=== PATIENT | male | born 1980 | race Caucasian/White ===

== ENCOUNTER 2020-06-06 07:22 | Outpatient (REF) | payer OTHER, SELFPAY ==
[2020-06-06 09:14] LABS: MANUAL DIFF FLAG NO
[2020-06-06 09:35] LABS: Basophils Percent Auto 0.7 % (0-2); Eosinophils Absolute Auto 0.2 X10*3/uL (0.0-0.4); Eosinophils Percent Auto 3.9 % (0-4); Hematocrit 41.8 % (42-52); Hemoglobin 14.2 g/dl (14.0-18.0); Imm Gran Abs Auto 0.01 X10*3/uL (0.00-0.03); Imm Gran Pct Auto 0.2 % (0.0-0.4); Lymphocytes Absolute Auto 1.7 X10*3/uL (1.2-4.9); Lymphocytes Percent Auto 40.4 % (20-40); Mean Corpuscular Hemoglobin 28.9 pg (27.0-33.0); Mean Corpuscular Volume 85.1 fL (80-98); Mean Platelet Volume 10.4 fL (9.4-12.4); Monocytes Absolute Auto 0.3 X10*3/uL (0.1-1.2); Monocytes Percent Auto 5.8 % (2-11); Neutrophils Absolute Auto 2.1 X10*3/uL (2.0-8.3); Platelet Count 222 X10*3/uL (160-400); Red Blood Count 4.91 X10*6/uL (4.60-5.80); Red Cell Distribution Width 11.9 % (11.0-16.0); White Blood Count 4.3 X10*3/uL (4.8-10.8)
[2020-06-06 11:14] LABS: Alanine Aminotransferase 19 U/L (0-40); Albumin Level 4.2 g/dL (3.5-5.0); Alkaline Phosphatase 67 U/L (39-117); Anion Gap 10 (12-20); Aspartate Amino Transferase 20 U/L (5-37); Bilirubin Total 0.4 mg/dL (0.0-1.0); Blood Urea Nitrogen 14 mg/dL (9-16); Calcium 8.9 mg/dL (8.4-10.2); Carbon Dioxide 30 mmol/L (22-29); Chloride 105 mmol/L (96-108); Cholesterol 195 mg/dL; Estimated Glomerular Filt Rate > 60; Glucose Fasting 101 mg/dL (60-99); HDL Cholesterol 54 mg/dL; LDL Cholesterol Calculated 126 mg/dl; Potassium 4.2 mmol/l (3.3-5.1); Sodium 141 mmol/L (135-145); Total Protein 6.6 g/dL (6.5-8.0); Triglycerides 76 mg/dL
== END 2020-06-06 07:23 | disposition home or self-care (01) ==
LOC: HO.LAB 07:22
PROVIDERS: PCP Internal Medicine; Visit Provider Internal Medicine
DX: F32.9 Major depressive disorder, single episode, unspecified (principal)
CPT/HCPCS: 36415; 80053; 80061; 85025

== ENCOUNTER 2020-08-22 09:04 | Outpatient (REF) | payer OTHER, SELFPAY | END 2020-08-22 09:05 | disposition home or self-care (01) | LOC: HO.LAB 09:04 | PROVIDERS: PCP Internal Medicine; Visit Provider Internal Medicine | DX: Z20.822 Contact with and (suspected) exposure to COVID-19 (principal) | CPT/HCPCS: 36415; C9803; U0003 ==

== ENCOUNTER 2022-11-10 07:39 | Outpatient (REF) | payer OTHER, SELFPAY ==
[2022-11-10 07:54] LABS: MANUAL DIFF FLAG NO
[2022-11-10 08:21] LABS: Basophils Percent Auto 0.8 % (0-2); Eosinophils Absolute Auto 0.1 X10*3/uL (0.0-0.4); Eosinophils Percent Auto 3.4 % (0-4); Hematocrit 43.8 % (42.0-52.0); Hemoglobin 14.7 g/dl (14.0-18.0); Imm Gran Abs Auto 0.01 X10*3/uL (0.00-0.03); Imm Gran Pct Auto 0.3 % (0.0-0.4); Lymphocytes Absolute Auto 1.5 X10*3/uL (1.2-4.9); Lymphocytes Percent Auto 39.5 % (20-40); Mean Corpuscular HGB Conc 33.6 g/dl (31.0-36.0); Mean Corpuscular Hemoglobin 28.6 pg (27.0-33.0); Mean Corpuscular Volume 85.2 fL (80.0-98.0); Mean Platelet Volume 9.8 fL (9.4-12.4); Monocytes Absolute Auto 0.3 X10*3/uL (0.1-1.2); Monocytes Percent Auto 6.5 % (2-11); Neutrophils Absolute Auto 1.9 x10*3/uL (2.0-8.3); Neutrophils Percent Auto 49.5 % (45-73); Platelet Count 200 X10*3/uL (160-400); Red Blood Count 5.14 X10*6/uL (4.60-5.80); Red Cell Distribution Width 12.2 % (11.0-16.0); White Blood Count 3.9 X10*3/uL (4.8-10.8)
[2022-11-10 08:45] LABS: Alanine Aminotransferase 22 U/L (0-40); Alkaline Phosphatase 55 U/L (39-117); Anion Gap 12 (12-20); Aspartate Amino Transferase 21 U/L (5-37); Bilirubin Total 1.3 mg/dL (0.0-1.0); Blood Urea Nitrogen 14 mg/dL (9-16); Calcium 9.1 mg/dL (8.4-10.2); Carbon Dioxide 28 mmol/L (22-29); Chloride 108 mmol/L (96-108); Cholesterol 223 mg/dL; Estimated Glomerular Filt Rate > 60; Glucose Fasting 100 mg/dL (60-99); HDL Cholesterol 67 mg/dL; LDL Cholesterol Calculated 145 mg/dl; Potassium 5.2 mmol/L (3.3-5.1); Sodium 143 mmol/L (135-145); Total Protein 6.2 g/dL (6.5-8.0); Triglycerides 55 mg/dL
== END 2022-11-10 07:40 | disposition home or self-care (01) ==
LOC: HO.LAB 07:39
PROVIDERS: PCP Internal Medicine; Visit Provider Internal Medicine
DX: E78.5 Hyperlipidemia, unspecified (principal); N28.9 Disorder of kidney and ureter, unspecified; D64.9 Anemia, unspecified
CPT/HCPCS: 36415; 80053; 80061; 85025

== ENCOUNTER 2023-06-13 13:33 | Outpatient (AMB) | payer OTHER, SELFPAY ==
[2023-06-13 13:51] VITALS: BP 126/68; PULSE 76; O2SAT 98; BMI 26.8
--- NOTE | 2023-06-13 13:51 | A.OFFPC_ITS ---
Vital Signs 06/13/23 13:51 Height 5 ft 10 in Weight 187 lb BMI 26.8 BP 126/68 Blood Pressure Location Lt brachial Position Sitting Pulse 76 Pulse Source Pulse Oximeter Pulse Oximetry (%) 98 Oxygen Delivery Method Room Air Intake Visit Reasons: L shoulder pain Allergies No Known Allergies Allergy (Verified 06/13/23 13:52) Medication List - Last Reconciled 06/13/23 by Adam Chester MD acyclovir 400 mg PO TID naproxen (Naprosyn) 500 mg PO BID PRN triamcinolone acetonide 0.5% 1 appl topical BID Tobacco use date assessed: 10/24/22 Dental Screening Dental Screen Date: 06/13/23 Did you have a dental visit in the last 12 months?: Yes Did you have a dental problem in the last 6 months where you did not have access to dental care?: No Was dental information given to patient?: Patient has dentist HPI L shoulder pain HPI Details left shoulder pain for a few months PFS Surgical History History of excision of lesion Family History Father Alcoholism Myocardial infarction Mother Myocardial infarction Social History Housing: House Alcohol intake: current Alcohol intake frequency: a few times a month Patient Tobacco Use Status: Never used Tobacco Tobacco use type: Cigarette e-Cigarette/Vaping Use: Never Used Second Hand Smoke Exposure: No service: No Current occupational status: employed Cognitive needs: No Hearing needs: No Vision needs: No Questionnaire PHQ-9 Over the last 2 weeks, how often have you been bothered by any of the following problems? 1. Little interest or pleasure in doing things: not at all 2. Feeling down, depressed, or hopeless: not at all 3. Trouble falling or staying asleep, or sleeping too much: not at all 4. Feeling tired or having little energy: not at all 5. Poor appetite or overeating: not at all 6. Feeling bad about yourself - or that you are a failure or have let yourself or your family down: not at all 7. Trouble concentrating on things, such as reading the newspaper or watching television: not at all 8. Moving or speaking so slowly that other people could have noticed. Or the opposite - being so fidgety or restless that you have been moving around a lot more than usual: not at all 9. Thoughts that you would be better off or of hurting yourself in some way: not at all Total score: 0 Depression Screening Interpretation: Negative Depression Screening Done: Yes 17591 - PHQ-9 Billing: Yes Source: Developed by Drs. Antoine Contreras, Lamont Love and colleagues, with an educational felicity from [employer]. Thrive Questionnaire Date Thrive assessed: 10/24/22 AUDIT C Alcohol Use Questionnaire (AUDIT-C) 1. How often do you have a drink containing alcohol?: Monthly or less 2. How many drinks containing alcohol do you have on a typical day when you are drinking?: 1 or 2 3. How often do you have six or more drinks on one occasion?: Never Total Score: 1 Score Reviewed/Action Taken: Yes IRAJ-7 AMB Questionnaire IRAJ-7 Date IRAJ - 7 assessed: 10/24/22 Source: Developed by Drs. Antoine Contreras, Isabel Hernandez, Lamont Staton and colleagues, with an educational felicity from [employer]. Review of Systems Const Denies chills, Denies headache(s) and Denies weight loss ENT Denies headache(s) Card Denies chest pain, Denies syncope, Denies irregular heart rhythm and Denies dyspnea Resp Denies chest congestion, Denies cough and Denies dyspnea GI Denies abdominal pain, Denies change in stool character, Denies nausea and Denies vomiting Musc Denies deformity and Denies joint swelling Neuro Denies syncope and Denies headache(s) Physical exam (Primary Care) Vital Signs: Last Vital Signs Pulse 76 06/13/23 13:51 BP 126/68 06/13/23 13:51 Pulse Ox 98 06/13/23 13:51 Oxygen Delivery Method Room Air 06/13/23 13:51 BMI result Body Mass Index 26.8 Tobacco/Smoking Status: Tobacco use Status Tobacco use date assessed 10/24/22 06/13/23 13:56 Patient Tobacco Use Status Never used Tobacco 06/13/23 13:56 Tobacco use type Cigarette 06/13/23 13:56 e-Cigarette/Vaping Use Never Used 06/13/23 13:56 PHQ-9: PHQ-9 Score PHQ-9: Total score 0 06/13/23 13:56 Depression Screening Interpretation: Negative Thrive Assessment: Date of Thrive Assessment Date Thrive assessed 10/24/22 06/13/23 13:56 Const General: cooperative, comfortable, no acute distress and alert Neck Neck: Yes no lymphadenopathy Thyroid: Thyroid normal Resp Effort & Inspection: normal respiratory effort Auscultation: clear to auscultation bilaterally Percussion: percussion normal Cardio Jugular venous distension: no JVD Palpation: normal PMI Rate: regular rate Rhythm: regular rhythm Heart sounds: S1 normal heart sound present and S2 normal heart sound present GI Inspection: Yes normal to inspection Palpation (GI): No hepatosplenomegaly present Skin General skin exam: no rashes or lesions noted Extrem General: Yes no clubbing, cyanosis or edema Assessment and Plan Assessment & Plan (1) Shoulder pain: Code(s): M25.519 - Pain in unspecified shoulder Plan: xr ice nsaids Orders: Orders XR shoulder LT min 2V Today M25.519 - Pain in unspecified shoulder PT Evaluation and Treatment Today M25.519 - Pain in unspecified shoulder Coding Level of Care Code Est Pt Level 3 (72847) Diagnoses Shoulder pain M25.519
== END 2023-06-13 14:01 | disposition home or self-care (01) ==
PROVIDERS: PCP Internal Medicine; Visit Provider Internal Medicine
DX: M25.519 Pain in unspecified shoulder (principal)
CPT/HCPCS: 99213

== ENCOUNTER 2023-06-13 14:06 | Outpatient (REF) | payer OTHER, SELFPAY ==
--- NOTE | ~2023-06-13 | XR_ITS ---
EXAMINATION: XR SHOULDER, LEFT CLINICAL INFORMATION: Patient states no injury. Pain in left shoulder. COMPARISON: None available. TECHNIQUE: AP external rotation, Grashey, scapular Y, and axillary views of the left shoulder. FINDINGS: Moderate degenerative changes in the acromioclavicular joint with joint space narrowing and hypertrophic change. Degenerative changes in the glenohumeral joint with prominent osteophyte along the inferomedial aspect of the humeral head. No abnormal soft tissue calcifications identified adjacent to the humeral head. XR/XR shoulder LT min 2V IMPRESSION: 1. Moderate degenerative changes in the acromioclavicular joint. 2. Degenerative changes in the glenohumeral joint with prominent osteophyte along the inferomedial aspect of the humeral head.
== END 2023-06-13 14:07 | disposition home or self-care (01) ==
LOC: HO.XRAY 14:06
PROVIDERS: PCP Internal Medicine; Visit Provider Internal Medicine
DX: M25.512 Pain in left shoulder (principal)
CPT/HCPCS: 73030

== ENCOUNTER 2023-07-30 09:51 | Outpatient (AMB) | payer OTHER, SELFPAY ==
--- NOTE | 2023-07-30 09:53 | MHC.OFFVIS ---
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 Patient reports ongoing discomfort for a couple months. He states that his pain is worse when laying down and getting dressed. No hx of injury or previous treatment. 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 He complains of pain primarily when lying down or with activities such as dressing himself. He reports his pain has been present for several months and points to the anterior aspect of the shoulder. He stays active with weight-lifting & exercising, and he owns a large plot of land that he has to care for, which is difficult for him. He denies any falls or known injury. He denies any prior treatment. His PCP ordered a course of PT but he did not attend. He reports that he does his own working out. His PCP also recommended icing & NSAIDs. He says he has been performing PT exercises at home, as he does not have time to attend formal PT. [facility] Surgical History History of excision of lesion Family History Father Alcoholism Myocardial infarction Mother Myocardial infarction Social History (Updated 07/30/23 @ 09:58 by Marissa Muller) Housing: House Alcohol intake: current Alcohol intake frequency: a few times a month Patient Tobacco Use Status: Never used Tobacco Tobacco use type: Cigarette e-Cigarette/Vaping Use: Never Used Second Hand Smoke Exposure: No service: No Current occupational status: employed Current occupation: student management Cognitive needs: No Hearing needs: No Vision needs: No Review of Systems Const All systems reviewed & are unremarkable except as noted in HPI and below Physical Exam Vital Signs: BMI result Body Mass Index 26.8 Const General: no acute distress, alert and awake Orientation/consciousness: patient oriented x3 HEENT Head: Yes normocephalic and Yes atraumatic Eyes EOM: EOMs intact bilaterally Resp Effort & Inspection: normal respiratory effort and able to speak in complete sentences Cardio Jugular venous distension: no JVD Skin General skin exam: turgor normal Rashes: no rashes Neuro General: patient oriented x3 Extrem Other: Left shoulder: Normal to inspection. No ecchymosis, erythema, or edema. Full shoulder ROM in all planes. Negative cross-body reach. 4/5 strength with empty can testing. NVI. Psych Appearance: grossly normal Affect: normal affect Attitude: cooperative Results Reviewed Results Reviewed: X-rays of the left shoulder from 06/13/23 were reviewed by me, Romi Limon PA-C, revealed left Glenohumeral joint & acromioclavicular joint osteoarthritis Assessment & Plan Assessment & Plan (1) Osteoarthritis of left glenohumeral joint: Code(s): M19.012 - Primary osteoarthritis, left shoulder (2) Osteoarthritis of left acromioclavicular joint: Code(s): M19.012 - Primary osteoarthritis, left shoulder Plan Bradley is a 43 year old man, presenting as a new patient, for an evaluation of left shoulder pain. He complains of pain primarily when lying down or with activities such as dressing himself. He reports his pain has been present for several months. He stays active with weight-lifting & exercising, and he owns a large plot of land that he has to care for, which is difficult for him. He denies any falls or known injury. He denies any prior treatment. His PCP ordered a course of PT and recommended icing & NSAIDs. He says he has been exercising at home with [employer] bells. He reports that he does not have time to attend formal PT at this time. The patient was offered an injection in the left glenohumeral joint. I have ordered an intra-articular glenohumerual joint injection to be performed at the hospital with imaging guidance. The patient was explained the risk, benefits, and alternatives to receiving this injection. If this is helpful I explained we can repeat every 3 months if needed. He will follow up in 6 weeks for reevaluation s/p cortisone injection, sooner if needed. Patient Instructions: Scribed for Romi Limon PA-C by Anish Busby, medical liaison, on 07/30/23 at 10:05 AM EST. Coding Level of Care Code New Pt Level 4 (65295) Diagnoses Osteoarthritis of left glenohumeral joint M19.012 Osteoarthritis of left acromioclavicular joint M19.012
[2023-07-30 09:59] VITALS: BMI 26.8
== END 2023-07-30 10:32 | disposition home or self-care (01) ==
PROVIDERS: PCP Internal Medicine; Visit Provider Physician Assistant
DX: M19.012 Primary osteoarthritis, left shoulder (principal)
CPT/HCPCS: 99204

== ENCOUNTER → 2023-07-30 09:51 | Outpatient (BNVA) | payer OTHER, SELFPAY | PROVIDERS: PCP Internal Medicine; Visit Provider Physician Assistant ==

== ENCOUNTER → 2023-09-10 12:58 | Outpatient (BNVA) | payer OTHER, SELFPAY | PROVIDERS: PCP Internal Medicine; Visit Provider Physician Assistant ==

== ENCOUNTER 2023-09-12 13:11 | Outpatient (REF) | payer OTHER, SELFPAY ==
--- NOTE | ~2023-09-12 | FL_ITS ---
Left shoulder steroid injection Indications: Left shoulder pain. Intra-articular gadolinium injection is needed prior to MRI. Procedure: Risks and benefits and possible complications were discussed with the patient and the consent form was signed. The patient was placed supine on the fluoroscopy table. The left shoulder was prepped and draped in normal sterile fashion. 1% buffered lidocaine was used for anesthesia. A 22-gauge spinal needle was used to access the shoulder joint. Intra-articular position of the needle within the shoulder joint was verified using 3 cc of Omnipaque 300. A total of 5 mL 1% lidocaine and 80 mg Depo-Medrol was injected into the shoulder joint. The needle was then removed and a Band-Aid was applied to the injection site. The patient tolerated the procedure well. There were no immediate complications. FL/FL arthrogram shoulder LT Impression: Fluoroscopic left shoulder steroid injection The procedure was performed by cristela Mina PA-C, and directly supervised by Dr. Irby.
== END 2023-09-12 13:12 | disposition home or self-care (01) ==
LOC: HO.XRAY 13:11
PROVIDERS: PCP Internal Medicine; Visit Provider Physician Assistant
DX: M19.012 Primary osteoarthritis, left shoulder (principal)
CPT/HCPCS: 23350; 73040

== ENCOUNTER → 2023-09-12 13:13 | Outpatient (BNV) | payer OTHER, SELFPAY | PROVIDERS: PCP Internal Medicine; Visit Provider Radiology Diagnostic Radiology | DX: M25.512 Pain in left shoulder (principal) | CPT/HCPCS: 23350; 73040 ==

== ENCOUNTER 2023-10-30 09:42 | Outpatient (AMB) | payer OTHER, SELFPAY ==
--- NOTE | 2023-10-30 09:44 | MHC.PC.OV ---
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 per policy Accompanied by: Self / Same As Patient Allergies No Known Allergies Allergy (Verified 10/30/23 09:45) Tobacco use date assessed: 10/30/23 Dental Screening Dental Screen Date: 10/30/23 Did you have a dental visit in the last 12 months?: Yes Did you have a dental problem in the last 6 months where you did not have access to dental care?: No Was dental information given to patient?: Patient has dentist HPI PE HPI Details healthy [facility] Surgical History History of excision of lesion Family History (Updated 10/30/23 @ 09:46 by JUAN Morales) Father Alcoholism Myocardial infarction Mother Myocardial infarction Social History Housing: House Alcohol intake: current Alcohol intake frequency: a few times a month Patient Tobacco Use Status: Never used Tobacco Tobacco use type: Cigarette e-Cigarette/Vaping Use: Never Used Second Hand Smoke Exposure: No service: No Current occupational status: employed Current occupation: student management Cognitive needs: No Hearing needs: No Vision needs: No Questionnaire PHQ-9 Over the last 2 weeks, how often have you been bothered by any of the following problems? 1. Little interest or pleasure in doing things: several days 2. Feeling down, depressed, or hopeless: more than half the days 3. Trouble falling or staying asleep, or sleeping too much: not at all 4. Feeling tired or having little energy: not at all 5. Poor appetite or overeating: not at all 6. Feeling bad about yourself - or that you are a failure or have let yourself or your family down: more than half the days 7. Trouble concentrating on things, such as reading the newspaper or watching television: more than half the days 8. Moving or speaking so slowly that other people could have noticed. Or the opposite - being so fidgety or restless that you have been moving around a lot more than usual: not at all 9. Thoughts that you would be better off or of hurting yourself in some way: not at all Total score: 7 56442 - PHQ-9 Billing: Yes Source: Developed by Drs. Antoine Contreras, Isabel Hernandez, Lamont Staton and colleagues, with an educational felicity from [employer]. Thrive Questionnaire Date Thrive assessed: 10/30/23 I am a: Patient What is your living situation today?: I have a steady place to live Within the past 12 months, did the food you bought not last and you didn't have the money to get more?: Never true Within the past 12 months, did you worry whether your food would run out before you got money to buy more?: Never true Do you have trouble paying for medicines?: No Do you have trouble getting transportation to medical appointments?: No Do you have trouble paying your heating and electricity bill?: No Do you have trouble taking care of your child, family member or friend?: No Do you have trouble with day-to-day activities such as bathing, preparing meals, shopping, managing finances, etc.?: No Are you currently unemployed and looking for a job?: No Are you interested in more education?: No Please select the resources that you would like help with: None THRIVE Score: 0 AUDIT C Alcohol Use Questionnaire (AUDIT-C) 1. How often do you have a drink containing alcohol?: Monthly or less 2. How many drinks containing alcohol do you have on a typical day when you are drinking?: 1 or 2 3. How often do you have six or more drinks on one occasion?: Never Total Score: 1 Score Reviewed/Action Taken: Yes IRAJ-7 AMB Questionnaire IRAJ-7 Date IRAJ - 7 assessed: 10/30/23 Feeling nervous, anxious, or on edge: 1 = Several days Not being able to stop or control worryin = More than half the days Worrying too much about different things: 2 = More than half the days Trouble relaxin = Several days Being so restless that it is hard to sit still: 0 = Not at all Becoming easily annoyed or irritable: 0 = Not at all Feeling afraid as if something awful might happen: 2 = More than half the days Total IRAJ-7 score (0-4 normal; 5-9 mild; 10-14 moderate; 15-21 severe): 8 Source: Developed by Drs. Antoine Contreras, Isabel Hernandez, Lamont Staton and colleagues, with an educational felicity from [employer]. Review of Systems Const Denies chills, Denies fatigue, Denies headache(s) and Denies weight loss Eyes Denies change in vision, Denies diplopia and Denies eye pain ENT Denies vertigo, Denies dizziness, Denies headache(s) and Denies nasal discharge Card Denies chest pain, Denies rapid heart rate and Denies dyspnea on exertion Resp Denies chest congestion, Denies cough, Denies pain with cough and Denies dyspnea on exertion GI Denies abdominal pain, Denies hematochezia and Denies change in bowel habits Musc Denies myalgias, Denies arthralgias and Denies joint swelling Skin/Breast Denies lesions and Denies unusual bruising Neuro Denies vertigo, Denies dizziness, Denies headache(s) and Denies focal weakness Endo Denies fatigue Physical exam (Primary Care) Vital Signs: Last Vital Signs Pulse 70 10/30/23 09:45 BP 118/76 10/30/23 09:45 Pulse Ox 98 10/30/23 09:45 Oxygen Delivery Method Room Air 10/30/23 09:45 BMI result Body Mass Index 26.5 Tobacco/Smoking Status: Tobacco use Status Tobacco use date assessed 10/30/23 10/30/23 09:46 Patient Tobacco Use Status Never used Tobacco 10/30/23 09:46 Tobacco use type Cigarette 10/30/23 09:46 e-Cigarette/Vaping Use Never Used 10/30/23 09:46 PHQ-9: PHQ-9 Score PHQ-9: Total score 7 10/30/23 09:59 Thrive Assessment: Date of Thrive Assessment Date Thrive assessed 10/30/23 10/30/23 09:46 Const General: cooperative, healthy appearing and no acute distress Orientation/consciousness: oriented to person, oriented to place and oriented to time HENOK Head: Yes normal to inspection, Yes normocephalic and Yes atraumatic Mouth: Normal oral and palatal mucosa present and tongue normal Throat: Yes posterior oropharynx normal and Yes uvula midline Eyes General: appearance normal, both eyes and all related structures Neck Neck: Yes normal visual inspection, Yes full ROM and Yes no lymphadenopathy Thyroid: Thyroid normal Carotids: normal carotid upstroke Chest Chest palpation & inspection: normal inspection of the chest Resp Effort & Inspection: normal respiratory effort and able to speak in complete sentences Auscultation: clear to auscultation bilaterally Cardio Jugular venous distension: no JVD Palpation: normal PMI Rate: regular rate Rhythm: regular rhythm Heart sounds: S1 normal heart sound present and S2 normal heart sound present GI Inspection: Yes normal to inspection Palpation (GI): Soft to palpation and No hepatosplenomegaly present Auscultation: normal bowel sounds General: Yes no CVA tenderness Back/Spine/Pelvis Back: no CVA tenderness Skin General skin exam: no rashes or lesions noted Neuro General: oriented to person, oriented to place and oriented to time Extrem General: Yes normal to inspection and Yes full ROM Assessment and Plan Assessment & Plan (1) Physical exam: Code(s): Z00.00 - Encounter for general adult medical examination without abnormal findings Plan: healthy; do labs Orders: Orders Lipid Panel Today E78.5 - Hyperlipidemia, unspecified Comprehensive [place]. Panel Fast Today N28.9 - Disorder of kidney and ureter, unspecified Complete Blood Count Auto Diff Today D64.9 - Anemia, unspecified Referrals General Surgery Referral R22.9 - Localized swelling, mass and lump, unspecified Coding Level of Care Code Est Pt Prev Care 40-64y(77748) Diagnoses Physical exam Z00.00
[2023-10-30 09:45] VITALS: BP 118/76; PULSE 70; O2SAT 98; BMI 26.5
== END 2023-10-30 10:17 | disposition home or self-care (01) ==
PROVIDERS: Visit Provider Internal Medicine
DX: Z00.00 Encounter for general adult medical examination without abnormal findings (principal)
CPT/HCPCS: 99396

== ENCOUNTER 2023-11-11 14:06 | Outpatient (AMB) | payer OTHER, SELFPAY ==
--- NOTE | 2023-11-11 14:12 | MHC.OFFVIS ---
Intake Vital Signs 11/11/23 14:13 Height 5 ft 10 in Weight 181 lb 4 oz BMI 26.0 BP 134/74 Blood Pressure Location Lt brachial Position Sitting Pulse 67 Intake Visit Reasons: Mass/ lump Intake Note: Patient is seen in office for evaluation and treatment of a mass of the right neck. 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 He has had this many years time. It is increasing in size, becoming more symptomatic. He wishes to have it removed. He has no such lesions elsewhere. Chart was reviewed patient evaluated [facility] Surgical History History of excision of lesion Family History Father Alcoholism Myocardial infarction Mother Myocardial infarction Social History Housing: House Alcohol intake: current Alcohol intake frequency: a few times a month Patient Tobacco Use Status: Never used Tobacco Tobacco use type: Cigarette e-Cigarette/Vaping Use: Never Used Second Hand Smoke Exposure: No service: No Current occupational status: employed Current occupation: student management Cognitive needs: No Hearing needs: No Vision needs: No Physical Exam Vital Signs: Last Vital Signs Pulse 67 11/11/23 14:13 BP 134/74 11/11/23 14:13 BMI result Body Mass Index 26.0 Neck Other: Patient is a proximally 1 x 1 cm skin polyp. Office Procedures Excision Details: Risks, benefits, alternatives of tangential biopsy of right skin polyp reviewed the patient included but not limited to bleeding, infection, recurrence, numbness, pain, scarring the patient was to proceed. Patient underwent 1% lidocaine and tangential excision of a right skin polyp. Patient tolerated procedure well. Wound base was cauterized with silver nitrate followed by bacitracin and dressing. 62382-[id number] face/ear/eyelid/nose/lip/mucous membrane 0.6cm-1cm Procedure code (CPT) selection complete Office Meds lidocaine 1 %-epinephrine 1:100,000 injection solution Performing Provider: Zhen Newby MD Performing Location: [facility] [place] General Surgeons Administered by: Zhen Newby MD on 11/11/23 14:22 Dose Route Admin Location Dispensed Lot Number Expiration Date NDC Reports Analyst 0.5 mL Infiltration 0.5 mL Assessment & Plan Assessment & Plan (1) Polyp of skin: Code(s): L98.8 - Other specified disorders of the skin and subcutaneous tissue Plan: Patient has been given local instructions, and will follow-up p.r.n.. Orders: Orders AMB Excision Today L98.8 - Other specified disorders of the skin and subcutaneous tissue Coding Level of Care Code New Pt Level 4 (06172) Diagnoses Polyp of skin L98.8 CPT Codes Face/Ear/Eyelid/Nose/Lip/Mucous Membrane - CPT: 94441-Beudxceh face/ear/eyelid/nose/lip/mucous membrane 0.6cm-1cm ([id number])
[2023-11-11 14:13] VITALS: BP 134/74; PULSE 67; BMI 26.0
== END 2023-11-11 14:31 | disposition home or self-care (01) ==
PROVIDERS: PCP Internal Medicine; Visit Provider Surgery
DX: L98.8 Other specified disorders of the skin and subcutaneous tissue (principal)
CPT/HCPCS: 11102; 99204

== ENCOUNTER → 2023-11-11 14:06 | Outpatient (BNVA) | payer OTHER, SELFPAY | PROVIDERS: PCP Internal Medicine; Visit Provider Surgery | DX: L98.8 Other specified disorders of the skin and subcutaneous tissue (principal) | CPT/HCPCS: 11102 ==

== ENCOUNTER 2024-08-28 11:42 | Outpatient (AMB) | payer OTHER, SELFPAY ==
[2024-08-28 11:47] VITALS: BP 118/80; PULSE 66; TEMP 36.6; O2SAT 97; BMI 25.3
--- NOTE | 2024-08-28 11:47 | MHC.PC.OV ---
Vital Signs 08/28/24 11:47 Height 5 ft 10 in Weight 176 lb 4 oz BMI 25.3 BP 118/80 Blood Pressure Location Lt brachial Position Sitting Pulse 66 Pulse Source Pulse Oximeter Temp 97.9 F Temp Source Temporal Artery Scan Pulse Oximetry (%) 97 Oxygen Delivery Method Room Air Intake Visit Reasons: Anxiety and depression Allergies No Known Allergies Allergy (Verified 11/11/23 14:13) Tobacco use date assessed: 10/30/23 Dental Screening Dental Screen Date: 10/30/23 HPI Anxiety and depression HPI Details has been under some stress lately; seeing a therapist [facility] Surgical History History of excision of lesion Family History Father Alcoholism Myocardial infarction Mother Myocardial infarction Social History Housing: House Alcohol intake: current Alcohol intake frequency: a few times a month Patient Tobacco Use Status: Never used Tobacco Tobacco use type: Cigarette e-Cigarette/Vaping Use: Never Used Second Hand Smoke Exposure: No service: No Current occupational status: employed Current occupation: student management Cognitive needs: No Hearing needs: No Vision needs: No Questionnaire PHQ-9 Over the last 2 weeks, how often have you been bothered by any of the following problems? 1. Little interest or pleasure in doing things: more than half the days 2. Feeling down, depressed, or hopeless: more than half the days 3. Trouble falling or staying asleep, or sleeping too much: several days 4. Feeling tired or having little energy: several days 5. Poor appetite or overeating: more than half the days 6. Feeling bad about yourself - or that you are a failure or have let yourself or your family down: several days 7. Trouble concentrating on things, such as reading the newspaper or watching television: several days 8. Moving or speaking so slowly that other people could have noticed. Or the opposite - being so fidgety or restless that you have been moving around a lot more than usual: several days 9. Thoughts that you would be better off or of hurting yourself in some way: not at all Total score: 11 14024 - PHQ-9 Billing: Yes Source: Developed by Drs. Antoine Contreras, Isabel Hernandez, Lamont Staton and colleagues, with an educational felicity from [employer]. Thrive Questionnaire Date Thrive assessed: 10/30/23 AUDIT C Alcohol Use Questionnaire (AUDIT-C) 1. How often do you have a drink containing alcohol?: Never 3. How often do you have six or more drinks on one occasion?: Never Total Score: 0 IRAJ-7 AMB Questionnaire IRAJ-7 Date IRAJ - 7 assessed: 08/28/24 Feeling nervous, anxious, or on edge: 2 = More than half the days Not being able to stop or control worryin = Several days Worrying too much about different things: 2 = More than half the days Trouble relaxin = Several days Being so restless that it is hard to sit still: 1 = Several days Becoming easily annoyed or irritable: 1 = Several days Feeling afraid as if something awful might happen: 2 = More than half the days Total IRAJ-7 score (0-4 normal; 5-9 mild; 10-14 moderate; 15-21 severe): 10 Source: Developed by Drs. Antoine Contreras, Isabel Hernandez, Lamont Staton and colleagues, with an educational felicity from [employer]. IRAJ-7 Assessment Billing IRAJ-7 Assessment Tool: IRAJ-7 Assessment 00249 Review of Systems Const Denies chills, Denies headache(s) and Denies weight loss ENT Denies headache(s) Card Denies chest pain, Denies syncope, Denies irregular heart rhythm and Denies dyspnea Resp Denies chest congestion, Denies cough and Denies dyspnea GI Denies abdominal pain, Denies change in stool character, Denies nausea and Denies vomiting Musc Denies deformity and Denies joint swelling Neuro Denies syncope and Denies headache(s) Physical exam (Primary Care) Vital Signs: Last Vital Signs Temp 97.9 F 08/28/24 11:47 Pulse 66 08/28/24 11:47 BP 118/80 08/28/24 11:47 Pulse Ox 97 08/28/24 11:47 Oxygen Delivery Method Room Air 08/28/24 11:47 BMI result Body Mass Index 25.3 Tobacco/Smoking Status: Tobacco use Status Tobacco use date assessed 10/30/23 08/28/24 11:52 Patient Tobacco Use Status Never used Tobacco 08/28/24 11:52 Tobacco use type Cigarette 08/28/24 11:52 e-Cigarette/Vaping Use Never Used 08/28/24 11:52 PHQ-9: PHQ-9 Score PHQ-9: Total score 11 08/28/24 11:53 Thrive Assessment: Date of Thrive Assessment Date Thrive assessed 10/30/23 08/28/24 11:52 Const General: cooperative, comfortable, no acute distress and alert Neck Neck: Yes no lymphadenopathy Thyroid: Thyroid normal Resp Effort & Inspection: normal respiratory effort Auscultation: clear to auscultation bilaterally Percussion: percussion normal Cardio Jugular venous distension: no JVD Palpation: normal PMI Rate: regular rate Rhythm: regular rhythm Heart sounds: S1 normal heart sound present and S2 normal heart sound present GI Inspection: Yes normal to inspection Palpation (GI): No hepatosplenomegaly present Skin General skin exam: no rashes or lesions noted Extrem General: Yes no clubbing, cyanosis or edema Office Procedures Flu Questionnaire Does the patient have a severe egg allergy?: No Immunizations Fluarix Triv [id number] (PF) 45 mcg (15 mcg x 3)/0.5 mL IM syringe Performing Provider: Adam Chester MD [place] [facility] [place] [place] [facility] Documented (not given) by: SIM Menard on 08/28/24 11:53 Reason Not Given: Patient Refused Coding Level of Care Code Est Pt Level 3 (23776) Diagnoses Anxiety F41.9 Additional Codes IRAJ-7 Assessment Billing - IRAJ-7 Assessment Tool: IRAJ-7 Assessment 91164 ([id number]) PHQ-9 - 18240 - PHQ-9 Billing: Yes ([id number]) Assessment & Plan Assessment & Plan (1) Anxiety: Code(s): F41.9 - Anxiety disorder, unspecified Category: Medical Plan: labs ordered Orders: Orders Influenza [id number] Immunization Today Z23 - Encounter for immunization Thyroid Stimulating Hormone Today Z13.29 - Encounter for screening for other suspected endocrine disorder Lipid Panel Today Z13.220 - Encounter for screening for lipoid disorders Complete Blood Count Auto Diff Today Z13.0 - Encounter for screening for diseases of the blood and blood-forming organs and certain disorders involving the immune mechanism Comprehensive [place]. Panel Fast Today Z13.9 - Encounter for screening, unspecified Referrals Gastroenterology Referral Z12.11 - Encounter for screening for malignant neoplasm of colon
== END 2024-08-28 12:05 | disposition home or self-care (01) ==
PROVIDERS: PCP Internal Medicine; Visit Provider Internal Medicine
DX: F41.9 Anxiety disorder, unspecified (principal); Z23 Encounter for immunization

== ENCOUNTER → 2024-08-28 11:42 | Outpatient (BNVA) | payer OTHER, SELFPAY | PROVIDERS: PCP Internal Medicine; Visit Provider Internal Medicine | DX: F41.9 Anxiety disorder, unspecified (principal); Z28.21 Immunization not carried out because of patient refusal | CPT/HCPCS: 90471; 96127 ==

== ENCOUNTER 2024-09-04 06:08 | Outpatient (REF) | payer OTHER, SELFPAY ==
[2024-09-04 06:27] LABS: MANUAL DIFF FLAG NO
[2024-09-04 07:24] LABS: Basophils Percent Auto 0.8 % (0-2); Eosinophils Absolute Auto 0.1 X10*3/uL (0.0-0.4); Eosinophils Percent Auto 3.8 % (0-4); Hematocrit 43.4 % (42.0-52.0); Hemoglobin 14.8 g/dl (14.0-18.0); Imm Gran Abs Auto 0.01 X10*3/uL (0.00-0.03); Imm Gran Pct Auto 0.3 % (0.0-0.4); Lymphocytes Absolute Auto 1.4 X10*3/uL (1.2-4.9); Mean Corpuscular HGB Conc 34.1 g/dl (31.0-36.0); Mean Corpuscular Hemoglobin 29.1 pg (27.0-33.0); Mean Corpuscular Volume 85.3 fL (80.0-98.0); Mean Platelet Volume 9.9 fL (9.4-12.4); Monocytes Absolute Auto 0.3 X10*3/uL (0.1-1.2); Monocytes Percent Auto 7.9 % (2-11); Neutrophils Absolute Auto 1.8 x10*3/uL (2.0-8.3); Neutrophils Percent Auto 49.2 % (45-73); Platelet Count 196 X10*3/uL (160-400); Red Blood Count 5.09 X10*6/uL (4.60-5.80); Red Cell Distribution Width 12.1 % (11.0-16.0); White Blood Count 3.7 X10*3/uL (4.8-10.8)
[2024-09-04 08:02] LABS: Alanine Aminotransferase 20 U/L (0-40); Albumin Level 4.1 g/dL (3.5-5.0); Alkaline Phosphatase 53 U/L (39-117); Anion Gap 9 (12-20); Aspartate Amino Transferase 17 U/L (5-37); Bilirubin Total 1.1 mg/dL (0.0-1.0); Blood Urea Nitrogen 17 mg/dL (9-16); Calcium 9.1 mg/dL (8.4-10.2); Carbon Dioxide 29 mmol/L (22-29); Chloride 108 mmol/L (96-108); Cholesterol 179 mg/dL (<200); Estimated Glomerular Filt Rate > 60; Glucose Fasting 98 mg/dL (60-99); HDL Cholesterol 63 mg/dL (>40); LDL Cholesterol Calculated 100 mg/dL (<100); Potassium 4.7 mmol/L (3.3-5.1); Sodium 141 mmol/L (135-145); Total Protein 6.7 g/dL (6.5-8.0); Triglycerides 80 mg/dL (<150)
[2024-09-04 08:19] LABS: Thyroid Stimulating Hormone 1.13 uIU/mL (0.32-4.0)
== END 2024-09-04 06:09 | disposition home or self-care (01) ==
LOC: HO.LAB 06:08
PROVIDERS: PCP Internal Medicine; Visit Provider Internal Medicine
DX: Z13.0 Encounter for screening for diseases of the blood and blood-forming organs and certain disorders involving the immune mechanism (principal); E78.5 Hyperlipidemia, unspecified; N28.9 Disorder of kidney and ureter, unspecified; Z13.29 Encounter for screening for other suspected endocrine disorder
CPT/HCPCS: 36415; 80053; 80061; 84443; 85025

== ENCOUNTER 2025-02-09 15:37 | Outpatient (AMB) | payer OTHER, SELFPAY ==
--- NOTE | 2025-02-09 15:49 | MHC.PC.OV ---
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 Chester, who retired. He has a history of osteoarthritis in the left shoulder, which he describes as chronic and managed with conservative measures such as rest and strengthening exercises. The condition is described as a [id number] issue, with symptoms being intermittent and managed without surgical intervention. The patient also reports a history of anxiety, which is currently controlled. He does not report any acute symptoms related to anxiety at this time. Preventative care measures were discussed, including the need for a colonoscopy due to the patient's age. The patient is aware of the importance of this screening and acknowledges the recommendation. [facility] Surgical History History of excision of lesion Family History Father Alcoholism Myocardial infarction Mother Myocardial infarction Social History Housing: House Alcohol intake: current Alcohol intake frequency: a few times a month Patient Tobacco Use Status: Never used Tobacco Tobacco use type: Cigarette e-Cigarette/Vaping Use: Never Used Second Hand Smoke Exposure: No service: No Current occupational status: employed Current occupation: student management Cognitive needs: No Hearing needs: No Vision needs: No Questionnaire PHQ-9 Over the last 2 weeks, how often have you been bothered by any of the following problems? 1. Little interest or pleasure in doing things: not at all 2. Feeling down, depressed, or hopeless: not at all 3. Trouble falling or staying asleep, or sleeping too much: not at all 4. Feeling tired or having little energy: not at all 5. Poor appetite or overeating: not at all 6. Feeling bad about yourself - or that you are a failure or have let yourself or your family down: not at all 7. Trouble concentrating on things, such as reading the newspaper or watching television: not at all 8. Moving or speaking so slowly that other people could have noticed. Or the opposite - being so fidgety or restless that you have been moving around a lot more than usual: not at all 9. Thoughts that you would be better off or of hurting yourself in some way: not at all Total score: 0 Depression Screening Interpretation: Negative Depression Screening Done: Yes Source: Developed by Drs. Antoine Contreras, Isabel Hernandez, Lamont Staton and colleagues, with an educational felicity from [employer]. Thrive Questionnaire Date Thrive assessed: 02/09/25 I am a: Patient What is your living situation today?: I have a steady place to live Within the past 12 months, did the food you bought not last and you didn't have the money to get more?: Never true Within the past 12 months, did you worry whether your food would run out before you got money to buy more?: Never true Do you have trouble paying for medicines?: No Do you have trouble getting transportation to medical appointments?: No Do you have trouble paying your heating and electricity bill?: No Do you have trouble taking care of your child, family member or friend?: No Do you have trouble with day-to-day activities such as bathing, preparing meals, shopping, managing finances, etc.?: No Are you currently unemployed and looking for a job?: No Are you interested in more education?: Yes Please select the resources that you would like help with: None Currently or been in a relationship where the following occur: No concerns reported THRIVE Score: 0 AUDIT C Alcohol Use Questionnaire (AUDIT-C) 1. How often do you have a drink containing alcohol?: Monthly or less 2. How many drinks containing alcohol do you have on a typical day when you are drinking?: 1 or 2 3. How often do you have six or more drinks on one occasion?: Never Total Score: 1 IRAJ-7 AMB Questionnaire IRAJ-7 Date IRAJ - 7 assessed: 02/09/25 Feeling nervous, anxious, or on edge: 1 = Several days Not being able to stop or control worryin = Several days Worrying too much about different things: 0 = Not at all Trouble relaxin = Not at all Being so restless that it is hard to sit still: 0 = Not at all Becoming easily annoyed or irritable: 0 = Not at all Feeling afraid as if something awful might happen: 0 = Not at all Total IRAJ-7 score (0-4 normal; 5-9 mild; 10-14 moderate; 15-21 severe): 2 Source: Developed by Drs. Antoine Contreras, Isabel Hernandez, Lamont Staton and colleagues, with an educational felicity from [employer]. Review of Systems Const Denies headache(s) Eyes Denies loss of vision ENT Denies vertigo, Denies dizziness, Denies headache(s) and Denies sore throat Card Denies chest pain, Denies leg edema and Denies lightheadedness Resp Denies cough, Denies hemoptysis and Denies wheezing GI Denies abdominal pain, Denies melena, Denies constipation, Denies diarrhea and Denies vomiting Denies dysuria, Denies urinary frequency and Denies urinary urgency Musc Reports arthralgias (left shoulder ), Denies joint swelling, Denies numbness and Denies tingling Neuro Denies Abnormal speech present, Denies behavioral changes, Denies vertigo, Denies dizziness, Denies headache(s), Denies loss of vision, Denies memory loss, Denies numbness and Denies tingling Psych Reports anxiety, Denies behavioral changes, Denies depression, Denies memory loss and Denies panic attacks Zbigniew/Lymph Denies easy bleeding and Denies easy bruising Aller/Immun Denies wheezing Physical exam (Primary Care) Vital Signs: Last Vital Signs Temp 97.5 F 02/09/25 15:51 Pulse 66 02/09/25 15:51 BP 132/72 02/09/25 15:51 Pulse Ox 98 02/09/25 15:51 Oxygen Delivery Method Room Air 02/09/25 15:51 BMI result Body Mass Index 28.2 Tobacco/Smoking Status: Tobacco use Status Tobacco use date assessed 02/09/25 02/09/25 15:56 Patient Tobacco Use Status Never used Tobacco 02/09/25 15:50 Tobacco use type Cigarette 02/09/25 15:50 e-Cigarette/Vaping Use Never Used 02/09/25 15:50 PHQ-9: PHQ-9 Score PHQ-9: Total score 0 02/09/25 16:07 Depression Screening Interpretation: Negative Thrive Assessment: Date of Thrive Assessment Date Thrive assessed 02/09/25 02/09/25 15:50 Currently or been in a relationship where the following occur: No concerns reported Const General: healthy appearing, no acute distress, alert and awake Nutritional Appearance: well nourished Orientation/consciousness: oriented to person, oriented to place and oriented to time HENMT Ears: TM's normal bilaterally General nose exam: Normal nasal mucous membranes and turbinates present Eyes Conjunctivae: conjunctivae normal Sclerae: sclerae normal Pupils: Equal, round and reactive pupils present Neck Neck: Yes no lymphadenopathy and Yes no JVD Thyroid: Thyroid normal Carotids: no bruits Resp Effort & Inspection: normal respiratory effort and not tachypneic Auscultation: no crackles, no rales, no rhonchi and no wheezes Cardio Rate: regular rate Rhythm: regular rhythm Heart sounds: no murmurs and normal S1 and S2 GI Palpation (GI): Soft to palpation, nontender, no hepatomegaly and no splenomegaly Auscultation: normal bowel sounds General: Yes no CVA tenderness Back/Spine/Pelvis Back: no CVA tenderness Skin General skin exam: no rashes or lesions noted and dry skin Neuro General: oriented to person, oriented to place and oriented to time Cranial nerves: Yes Equal, round and reactive pupils present Speech: No Abnormal speech present Gait exam (Neuro): Normal gait present Motor exam (neuro): no tremor noted Extrem Right upper extremity: full ROM Left upper extremity: full ROM and shoulder/upper arm Details: inspection abnormal; no tenderness and no swelling Right lower extremity: full ROM; no edema Left lower extremity: full ROM; no edema Psych Mental Status: mental status grossly normal Speech and movement: Normal speech and movement present Affect: normal affect Attitude: cooperative Thought process: Normal thought process present Coding Level of Care Code Est Pt Level 3 (44433) Diagnoses Osteoarthritis of left shoulder, unspecified osteoarthritis type M19.012 Osteoarthritis type: unspecified Anxiety F41.9 Time Spent (min) 33 Assessment & Plan Assessment & Plan (1) Osteoarthritis of left shoulder: Code(s): M19.012 - Primary osteoarthritis, left shoulder Category: Medical Qualifiers: Osteoarthritis type: unspecified Qualified Code(s): M19.012 - Primary osteoarthritis, left shoulder (2) Anxiety: Code(s): F41.9 - Anxiety disorder, unspecified Category: Medical Plan The plan for managing osteoarthritis of the left shoulder includes continuing with conservative measures such as rest and strengthening exercises to alleviate symptoms and prevent further joint stress. Injections or surgical interventions are not currently indicated unless symptoms significantly worsen. For anxiety, the patient will continue with current management strategies as symptoms are controlled. No changes in medication or additional interventions are necessary at this time. Preventative care includes scheduling a colonoscopy due to the patient's age, as part of routine health maintenance. The patient is advised to maintain regular physical activity and hydration to support overall health. Patient was informed and verbally consented to the use of an ambient scribe for clinic note documentation during this visit. Orders: Orders Comprehensive [place]. Panel Fast 02/09/25 F41.9 - Anxiety disorder, unspecified, M19.012 - Primary osteoarthritis, left shoulder, Z00.00 - Encounter for general adult medical examination without abnormal findings Lipid Panel 02/09/25 F41.9 - Anxiety disorder, unspecified, M19.012 - Primary osteoarthritis, left shoulder, Z00.00 - Encounter for general adult medical examination without abnormal findings UA CC w/rflx Micro + Cult 02/09/25 F41.9 - Anxiety disorder, unspecified, M19.012 - Primary osteoarthritis, left shoulder, Z00.00 - Encounter for general adult medical examination without abnormal findings Vitamin D 25-OH Total 02/09/25 F41.9 - Anxiety disorder, unspecified, M19.012 - Primary osteoarthritis, left shoulder, Z00.00 - Encounter for general adult medical examination without abnormal findings Complete Blood Count Auto Diff 02/09/25 F41.9 - Anxiety disorder, unspecified, M19.012 - Primary osteoarthritis, left shoulder, Z00.00 - Encounter for general adult medical examination without abnormal findings TSH reflex Free T4 02/09/25 F41.9 - Anxiety disorder, unspecified, M19.012 - Primary osteoarthritis, left shoulder, Z00.00 - Encounter for general adult medical examination without abnormal findings
[2025-02-09 15:51] VITALS: BP 132/72; PULSE 66; TEMP 36.4; O2SAT 98; BMI 28.2
--- OUTSIDE RECORDS SUMMARY | 2025-02-09 18:47 | XMS_ITS | Patient Health Record ---
Author Organization [facility] Address [address] [place] [address] Care Team Providers Care Production Helper Name Role Phone Adam Chester MD Primary Care Provider Rohan Curran Unavailable [phone] Reason For Referral No Information Medications Medication SIG (Take, Route, Fr equency, Duration) Notes Start Date End Date Status Acyclovir 400 MG Orally PRN Act sydnie Zolpidem Tartrate 5 MG Orally PRN Active Social History Tobacco Use: Social History Observation Description Date Details (start date - stop date) Former Smoker NA - NA Tobacco Use/Smoking Question Answer Notes Are you a: former smoker Additional Findings: Tobacco Non-User Ex -cigarette smoker,Ex-light cigarette smoker (1-9/day) Alcohol Screen Question Answer Notes Did you have a drink containing alcohol in the p ast year? Yes Points 0 Interpretation Negative Tobacco use other than smoking: Question Answer Notes Are you an other tobacco user? No Problems Problem Type SNOMED Code ICD Code Onset Dates Problem Status W/U Status Risk Notes Problem Metatarsalgia (69464615) Metatarsalgia (726.70) Active confirmed Problem Pain in limb (70903544) Pain in Limb (729.5) Active confirmed Problem Tailors bunion (1086573) Tailors Bunion (727.1) Active confirmed Problem Verruca plantaris (94157896) Verruca Plantaris (078.19) Active confirmed Plan Of Treatment Pending Test Test Name Order Date [id number] Destruction, 1-14 03/03/2015 Insurance Providers Payer Name Payer Address Payer Phone Subscriber Number Group Number Insured Name Patient Relationship to Insured Coverage Start Date Coverage End Date [facility] [address] [place] [address] [id number] Lin Walton Spouse - patient is the spouse of the insured Medical (General) History Medical History History ICD Code Chicken pox
== END 2025-02-09 16:25 | disposition home or self-care (01) ==
LOC: HO.HMCH 15:37
DX: M19.012 Primary osteoarthritis, left shoulder (principal); F41.9 Anxiety disorder, unspecified

== ENCOUNTER → 2025-02-09 15:37 | Outpatient (BNVA) | payer OTHER, SELFPAY | DX: Z13.89 Encounter for screening for other disorder (principal) ==

== ENCOUNTER 2025-05-24 07:22 | Outpatient (REF) | payer OTHER, SELFPAY ==
--- OUTSIDE RECORDS SUMMARY | 2025-05-24 07:24 | XMS_ITS | Patient Health Record ---
Author Organization [facility] Address [address] [place] [address] Care Team Providers Care Construction Job Titles Name Role Phone Adam Chester MD Primary Care Provider Rohan Curran Unavailable [phone] Reason For Referral No Information Medications Medication [...] Status W/U Status Risk Notes Problem Metatarsalgia (96662812) Metatarsalgia (726.70) Active confirmed Problem Pain in limb (34252813) Pain in Limb (729.5) Active confirmed Problem Tailors bunion (8017448) Tailors Bunion (727.1) Active confirmed Problem Verruca plantaris (84149391) Verruca Plantaris (078.19) Active confirmed Plan Of Treatment Pending Test Test Name Order Date [id number] Destruction, 1-14 03/03/2015 Insurance Providers Payer Name Payer Address Payer Phone Subscriber Number Group Number Insured Name Patient Relationship to Insured Coverage Start Date Coverage End Date [facility] [address] [place] [address] [id number] Lin Walton Spouse - patient is the spouse of the insured Medical (General) History Medical History History ICD Code Chicken pox
[2025-05-24 07:43] LABS: MANUAL DIFF FLAG NO
[2025-05-24 08:03] LABS: Hematocrit 41.6 % (42.0-52.0); Hemoglobin 14.2 g/dl (14.0-18.0); Imm Gran Abs Auto 0.01 X10*3/uL (0.00-0.03); Imm Gran Pct Auto 0.3 % (0.0-0.4); Lymphocytes Absolute Auto 1.4 X10*3/uL (1.2-4.9); Mean Corpuscular HGB Conc 34.1 g/dl (31.0-36.0); Mean Corpuscular Hemoglobin 28.0 pg (27.0-33.0); Mean Corpuscular Volume 82.1 fL (80.0-98.0); NRBC Abs Auto 0.000 X10*3/uL (0.0-0.012); NRBC Pct Auto 0.0 /100WBC (0.0-0.2); Platelet Count 203 X10*3/uL (160-400); Red Blood Count 5.07 X10*6/uL (4.60-5.80); White Blood Count 3.8 X10*3/uL (4.8-10.8)
[2025-05-24 08:26] LABS: Alanine Aminotransferase 28 U/L (0-40); Albumin Level 4.4 g/dL (3.5-5.0); Alkaline Phosphatase 65 U/L (39-117); Anion Gap 11 (12-20); Aspartate Amino Transferase 22 U/L (5-37); Blood Urea Nitrogen 22 mg/dL (9-16); Calcium 9.1 mg/dL (8.4-10.2); Carbon Dioxide 27 mmol/L (22-29); Chloride 109 mmol/L (96-108); Cholesterol 189 mg/dL (<200); Estimated Glomerular Filt Rate > 60; HDL Cholesterol 57 mg/dL (>40); Potassium 4.0 mmol/L (3.3-5.1); Sodium 143 mmol/L (135-145); Total Protein 6.7 g/dL (6.5-8.0); Triglycerides 86 mg/dL (<150)
[2025-05-24 08:38] LABS: Appearance Urine Clear; Glucose Urine UA Negative (Negative); PH 5.5 (5.0-9.0); Specific Gravity - Urine >= 1.030 (1.005-1.025)
[2025-05-24 08:50] LABS: HBS Num1 20.73 mIU/mL (0-7.99); HBc Num1 0.05 S/CO (0.00-0.79); HBsAGNum1 0.39 S/CO (0.00-0.99); Hepatitis B Surface Antigen Negative (Negative); ~Hepatitis B Surface Antibody REACTIVE (Nonreactive)
[2025-05-25 09:37] LABS: Rubeola IgG (Measles) 36.90 AU/mL
[2025-05-27 05:40] LABS: TS Negative Control Passed; TS Panel A 0; TS Panel B 1; TS Positive Control Passed; TSpotTB Negative (Negative)
== END 2025-05-24 07:23 | disposition home or self-care (01) ==
LOC: HO.LAB 07:22
DX: Z00.00 Encounter for general adult medical examination without abnormal findings (principal); Z01.84 Encounter for antibody response examination; Z11.1 Encounter for screening for respiratory tuberculosis; Z13.6 Encounter for screening for cardiovascular disorders; F41.9 Anxiety disorder, unspecified; M19.012 Primary osteoarthritis, left shoulder
CPT/HCPCS: 36415; 80053; 80061; 81003; 82306; 84443; 85025; 86481; 86704; 86706; 86735; 86762; 86765; 86787; 87340